=== PATIENT | male | born 1935 | race Caucasian/White ===

== ENCOUNTER 2016-09-20 07:11 | Emergency (ER) | payer OTHER, MEDICARE ==
[~2016-09-20] VITALS: Ht 182.9 cm; Wt 93.4 kg
--- NOTE | 2016-09-20 07:20 | ED NOSE COMPLAINT ---
History of Present Illness General Chief Complaint: Epistaxis/Nasal Foreign Body Stated Complaint: BIBA, NOSE BLEED Source: patient, family, old records, EMS Exam Limitations: no limitations Vital Signs & Intake/Output Vital Signs & Intake/Output Vital Signs Date Time Temp Pulse Resp B/P Pulse O2 O2 Flow FiO2 Ox Delivery Rate 09/20 0841 142/84 09/20 0811 152/78 09/20 0730 98 Room Air 09/20 0715 98.1 95 18 178/82 95 Room Air Allergies Coded Allergies: NO KNOWN ALLERGIES (09/20/16) Reconcile Medications Allopurinol 300 MG TABLET 1 TAB PO DAILY GOUT (Reported) Atorvastatin Calcium 10 MG TABLET 1 TAB PO DAILY CHOLESTEROL (Reported) Brimonidine Tartrate/Timolol (Combigan Eye Drops) 0.2 %-0.5 % DROPS GLAUCOMA ( Reported) Cyclosporine (Restasis) 0.05 % DROPERETTE 1 GTT OPH BID GLAUCOMA (Reported) Finasteride 5 MG TABLET 1 TAB PO DAILY PROSTATE (Reported) Tafluprost/Pf (Zioptan 0.0015% Eye Drops) 0.0015 % DROPERETTE GLAUCOMA ( Reported) Triage Note: PT TO ED C/O NOSEBLEED X 40 MINS. STATES HE WOKE UP TO WHAT HE THOUGHT WAS A "RUNNY NOSE" AND NOTICED IT WAS BLOOD. DENIES ANY PAIN. TAKES 81MG ASA DAILY. Triage Nurses Notes Reviewed? yes HPI: Patient woke up feeling that his nose was running. He wiped it and it was bright red blood. This was approx. 6 am. Pt denies any trauma. No headache, no blurry vision, no nausea or vomiting, no pain. no difficulty breathing. No lightheadedness. Past History Travel History Traveled to [place] past 21 day No Medical History Any Pertinent Medical History? see below for history EENT: glaucoma Cardiovascular: hyperlipidemia Surgical History Surgical History: non-contributory Psychosocial History What is your primary language Estonian Tobacco Use: Never used ETOH Use: denies use Illicit Drug Use: denies illicit drug use Family History Hx Contributory? No Review of Systems Review of Systems Constitutional: Reports: no symptoms. EENTM: Reports: see HPI, epistaxis. Respiratory: Reports: no symptoms. Cardiovascular: Reports: no symptoms. GI: Reports: no symptoms. Neurological/Psychological: Reports: no symptoms. Physical Exam Physical Exam General Appearance: well developed/nourished, alert, awake, anxious, mild distress Head: atraumatic, normal appearance Eyes: Bilateral: PERRL, EOMI. Nose: dried blood (LEFT ANT SEPTUM) Mouth/Throat: normal mouth inspection Cardiovascular/Respiratory: normal breath sounds, normal peripheral pulses, regular rate/rhythm, no respiratory distress Neurologic/Psych: no motor/sensory deficits, awake, alert, oriented x 3, normal mood/affect Progress Differential Diagnoses I considered the following diagnoses in my evaluation of the patient: [ANTERIOR EPISTAXIS] Plan of Care: BLEEDING CONTROLLED PRIOR TO ARRIVAL, WILL OBSERVE, IF NO FURTHER BLLEDING WILL AMBULATE IN DEPARTMENT. IF STILL NO FURTHER BLEEDING, D/C HOME, IF REBLEEDS, [place]. Initial ED EKG: none Comments: STILL NO REBLEED, B/P IS COMING DOWN, HEADACHE RESOLVED ATFTER TYLENON - HEADACHE STARTED WHILE HERE IN THE DEPARTMENT, FRONTAL TROBBIBG, NO RADIATION, 2 OUT OF 10, RELIEVED WITH TYLENOL. Departure Departure Disposition: HOME OR SELF CARE Condition: Stable Clinical Impression Primary Impression: Epistaxis Referrals: CHRISTINE TAI,RAMIREZ Jovel (PCP/Family) Additional Instructions: DO NOT BLOW YOUR NOSE FOR AT LEAST 24 HOURS USE SALINE NASAL SPRAY RETURN IF BLEEDING STARTS AGAIN OR FOR ANY COCNERNS. Departure Forms: Customer Survey General Discharge Information
[2016-09-20] MEDS ORDERED: ALLOPURINOL300 M1 PO (07:54)
[2016-09-20] MEDS ORDERED: FINASTERIDE5 M1 PO (07:54)
[2016-09-20] MEDS ORDERED: ATORVASTATIN CA10 M1 PO (07:54)
[2016-09-20] MEDS ORDERED: RESTASIS1 EACH OPH (07:54)
[2016-09-20] MEDS ORDERED: ZIOPTAN 0.00151 EACH OD (07:55)
[2016-09-20] MEDS ORDERED: COMBIGAN EYE DRO5 ML OD (07:55)
[2016-09-20 09:30] VITALS: BP 140/80
== END 2016-09-20 09:34 ==
LOC: ERH 07:11
DX: R04.0 Epistaxis (principal); I10 Essential (primary) hypertension; R51 Headache

== ENCOUNTER 2016-10-07 14:10 | Emergency (ER) | payer OTHER, MEDICARE ==
[~2016-10-07] VITALS: Ht 182.9 cm; Wt 94.3 kg
[~2016-10-07 14:10] MED LIST: ALLOPURINOL300 M1 PO; ATORVASTATIN CA10 M1 PO; COMBIGAN EYE DRO5 ML OD; FINASTERIDE5 M1 PO; RESTASIS1 EACH OPH; ZIOPTAN 0.00151 EACH OD
--- NOTE | 2016-10-07 16:22 | ED NOSE COMPLAINT ---
History of Present Illness General Chief Complaint: Epistaxis/Nasal Foreign Body Stated Complaint: NOSE BLEED Source: patient Exam Limitations: no limitations Vital Signs & Intake/Output Vital Signs & Intake/Output Vital Signs Date Time Temp Pulse Resp B/P Pulse O2 O2 Flow FiO2 Ox Delivery Rate 10/07 1656 136/80 10/07 1420 97.1 104 14 171/95 96 Room Air Allergies Coded Allergies: NO KNOWN ALLERGIES (09/20/16) Reconcile Medications Allopurinol 300 MG TABLET 1 TAB PO DAILY GOUT (Reported) Aspirin (Ecotrin*) 81 MG TABLET.DR 1 TAB PO DAILY HEART/BLOOD (Reported) Atorvastatin Calcium 10 MG TABLET 1 TAB PO DAILY CHOLESTEROL (Reported) Brimonidine Tartrate/Timolol (Combigan Eye Drops) 0.2 %-0.5 % DROPS 1 DROP OD BID GLAUCOMA - RIGHT EYE (Reported) Cyclosporine (Restasis) 0.05 % DROPERETTE 1 GTT OPH BID BOTH EYES (Reported) Finasteride 5 MG TABLET 1 TAB PO DAILY PROSTATE (Reported) Stratton-3 Fatty Acids (Fish Oil) (Unknown Strength) CAPSULE (Unknown Dose) PO DAILY SUPPLEMENT (Reported) Tafluprost/Pf (Zioptan 0.0015% Eye Drops) 0.0015 % DROPERETTE 1 DROP OD QPM RIGHT EYE (Reported) Triage Note: 81 Y/O MALE PRESENTS WITH L SIDED EPISTAXIS. STATES HE WAS EVAL'D IN ED FOR SAME LAST WEEK AND IS DUE TO F/U WITH ENT FRIDAY. CALLED ENT TODAY AND WAS ADVISED TO COME TO ED FOR PACKING PLACEMENT DUE TO SNOWSTORM, "THEY SAID IN CASE IT HAPPENS AGAIN". DENIES COMPLAINTS. HOLDING BRIDGE OF NOSE. MINIMAL BLEEDING NOTED. Triage Nurses Notes Reviewed? yes Onset: Gradual Timing: recent history Injury Environment: home Severity: mild HPI: Patient is a 81-year-old male presenting to the emergency department with chief complaint of epistaxis. He reports that he was seen and evaluated here 4 days ago for the same. He was given ear nose and throat to follow-up with. He called and made an appointment for Friday. He sneezed today and noticed some bleeding coming from the nose. He was able to control after pressure after an hour and a half. He takes a daily aspirin. He called the ENT and was referred to the emergency department for the continued bleeding. He was told that he may need packing and is no significant natively. Patient denies any headaches or visual changes. Denies any nausea or vomiting fevers or chills chest pain or shortness of breath. Pressure seemed to make the symptoms better. Denies any specific trauma besides sneezing. (EFRAÍN MENJIVAR) Past History Travel History Traveled to [place] past 21 day No Medical History Any Pertinent Medical History? see below for history Neurological: NONE EENT: glaucoma Cardiovascular: hyperlipidemia Respiratory: NONE Gastrointestinal: NONE Hepatic: NONE Renal: NONE Musculoskeletal: NONE Psychiatric: NONE Endocrine: NONE Blood Disorders: NONE Cancer(s): NONE PERFORMANCE IMPROVEMENT CONSULTANT/Reproductive: NONE Surgical History Surgical History: non-contributory Psychosocial History What is your primary language Senegalese Tobacco Use: Never used Family History Hx Contributory? No (EFRAÍN MENJIVAR) Review of Systems Review of Systems Constitutional: Reports: no symptoms. Comments Review of systems: See HPI, All other systems negative. Constitutional, no chills fever or weight loss HEENT: No visual changes no sore throat no congestion Cardiovascular: No chest pain ,palpitation Skin, no jaundice no rashes Respiratory: No dyspnea cough sputum or hemoptysis GI: No nausea no vomiting : No dysuria No hematuria Muscle skeletal: no back pain, no neck pain, Neurologic: No numbness no confusion no huynh Psych: No stress anxiety Immunology: No splenectomy or history of AIDS (EFRAÍN MENJIVAR) Physical Exam Physical Exam General Appearance: well developed/nourished, no apparent distress, alert, awake , comfortable Nose: dried blood Comments: Well-developed well-nourished person in no acute distress HEENT: extraocular motion intact, no nystagmus. Pupils equally round and reactive to light and accommodation. Nose is atraumatic. External auditory canal and Tympanic membranes clear. Pharynx normal. No swelling or edema. Dried blood noted in the left naris. No septal hematoma. I do not see a bleeding site. Neck: Normal inspection Cardiovascular: Regular rate and rhythms no murmurs rubs or gallops, normal JVP Respiratory: Chest nontender. No respiratory distress.breath sounds clear to auscultation bilaterally Extremity: No edema Neuro: Alert oriented x3, motor sensory normal, cranial nerves II through XII grossly intact. Skin: No appreciable rash on exposed skin, skin is warm and dry. Psych: Mood and affect is normal, memory and judgment is normal. (EFRAÍN MENJIVAR) Progress Differential Diagnoses I considered the following diagnoses in my evaluation of the patient: Anterior epistaxis, posterior epistaxis, hypertension, anemia, septal hematoma Plan of Care: Patient not currently bleeding. Spoke with patient's ENT doctor Ami, recommending no packing at this time since patient is not bleeding. Patient will be discharged home. He will use Afrin as directed for the next 2-3 days. He was informed to return to the emergency department if the bleeding starts up again and is severe. Patient nontoxic. Repeat blood pressure is within normal range manually. Initial ED EKG: NSR (EFRAÍN MENJIVAR) Departure Departure Time of Disposition: 1645 Disposition: HOME OR SELF CARE Condition: Stable Clinical Impression Primary Impression: Epistaxis Referrals: CHRISTINE TAI,RAMIREZ Jovel (PCP/Family) Additional Instructions: Follow-up with your ENT as scheduled for Friday. Return for any worsening symptoms or concerns. Use Afrin in each nostril one spray once daily for the next 2-3 days. Do not continues after that. If you do bleed heavily again and is not controlled with pressure return to the emergency department. He can try using cool compresses. Also apply a thin layer of Vaseline at the base of your nares to help with moisture. Departure Forms: Customer Survey General Discharge Information (EFRAÍN MENJIVAR) PA/MANAGER ENGINE Co-Sign Statement Statement: ED Attending supervision documentation- [] I saw and evaluated the patient. I have also reviewed all the pertinent lab results and diagnostic results. I agree with the findings and the plan of care as documented in the PA's/MANAGER ENGINE's documentation. [X] I have reviewed the ED Record and agree with the PA's/MANAGER ENGINE's documentation. [] Additions or exceptions (if any) to the PAs/MANAGER ENGINE's note and plan are summarized below: [] (PEPE LITTLEJOHN DO)
[2016-10-07] MEDS ORDERED: ASPIRIN EC81 M1 PO (16:29)
[2016-10-07] MEDS ORDERED: FISH OIL500 M1 PO (16:30)
[2016-10-07 16:56] VITALS: BP 136/80
== END 2016-10-07 17:11 ==
LOC: ERH 14:10
DX: R04.0 Epistaxis (principal)